=== PATIENT | female | born 1945 | race Caucasian/White ===

== ENCOUNTER 2021-01-04 07:59 | Outpatient (CLI) | payer MEDICARE | END 2021-01-04 08:00 | disposition home or self-care (01) | LOC: CSHCT 07:59 | PROVIDERS: ATTEND Internal Medicine Hematology & Oncology | DX: C50.912 Malignant neoplasm of unspecified site of left female breast (principal); C78.7 Secondary malignant neoplasm of liver and intrahepatic bile duct; C78.2 Secondary malignant neoplasm of pleura; K57.30 Diverticulosis of large intestine without perforation or abscess without bleeding; K80.80 Other cholelithiasis without obstruction; D25.9 Leiomyoma of uterus, unspecified | CPT/HCPCS: 71260; 74177; 82565 ==